=== PATIENT | male | born 1960 | race Hispanic/Latino ===

== ENCOUNTER 2017-08-30 18:15 | Emergency (ER) | payer MEDICAID ==
[2017-08-30 18:25] VITALS: BP 125/55; PULSE 85; RESP 18; TEMP 98.4; O2SAT 94
--- NOTE | 2017-08-30 18:48 | ED PDOC ---
HPI: Trauma/Fall - HPI Time Seen by Provider: 08/30/17 18:26 Chief Complaint (Nursing): Trauma Chief Complaint (Provider): fall, left side back pain History Per: Patient Additional Complaint(s): 57-year-old male presents to emergency Department with complaints of left upper back pain and left rib pain status post fall yesterday. Patient denies head injury or loss of consciousness. Patient denies syncope or dizziness prior to fall. He has been taking Advil which has provided only minimal pain relief. Pain is better with rest and worse with any movement. PMD: none Past Medical History Reviewed: Historical Data, Nursing Documentation, Vital Signs Vital Signs: Last Vital Signs Temp 98.4 F 08/30/17 18:22 Pulse 85 08/30/17 18:22 Resp 18 08/30/17 18:22 BP 125/55 L 08/30/17 18:22 Pulse Ox 94 L 08/30/17 18:22 - Medical History PMH: No Chronic Diseases - Surgical History Surgical History: No Surg Hx - Family History Family History: States: No Known Family Hx - Living Arrangements Living Arrangements: With Family - Social History Current smoker - smoking cessation education provided: No Alcohol: None Drugs: Denies - Home Medications Home Medications: Ambulatory Orders Medication Instructions Recorded Cyclobenzaprine [Cyclobenzaprine 10 mg PO TID PRN #15 tab 08/30/17 HCl] traMADol [Ultram] 50 mg PO Q6H PRN #15 tab 08/30/17 - Allergies Allergies/Adverse Reactions: Allergies Allergy/AdvReac Type Severity Reaction Status Date / Time No Known Allergies Allergy Verified 08/30/17 18:22 Review of Systems ROS Statement: Except As Marked, All Systems Reviewed And Found Negative Musculoskeletal: Positive for: Back Pain (left upper ) Neurological: Positive for: Other (no head injury or LOC) Physical Exam - Reviewed Nursing Documentation Reviewed: Yes Vital Signs Reviewed: Yes - Physical Exam Appears: Positive for: Well, Non-toxic, No Acute Distress Head Exam: Positive for: ATRAUMATIC, NORMAL INSPECTION, NORMOCEPHALIC Skin: Positive for: Normal Color. Negative for: Rash Neck: Positive for: Normal, Painless ROM Cardiovascular/Chest: Positive for: Regular Rate, Rhythm, Other (Mild tenderness left lateral chest wall and left posterior rib region, no palpable bony deformity) Respiratory: Positive for: CNT, Normal Breath Sounds Gastrointestinal/Abdominal: Positive for: Soft. Negative for: Tenderness, Distended, Guarding, Rebound Back: Positive for: Vertebral Tenderness (left paraspinal region along thoracic spine) Extremity: Positive for: Normal ROM Neurologic/Psych: Positive for: Alert, Oriented (x3). Negative for: Motor/ Sensory Deficits - ECG O2 Sat by Pulse Oximetry: 94 (RA) Pulse Ox Interpretation: Normal - Other Rad CXR with left rib series X-Ray: Interpreted by Me, Viewed By Me X-Ray Interpretation: no fx, no dis Thoracic spine x-ray X-Ray: Interpreted by Me, Viewed By Me X-Ray Interpretation: no fx, no dis Medical Decision Making Medical Decision Making: Time: 18:22 Impression: 57 y/o male with left rib pain and left upper back pain s/p fall Initial Plan: * Chest & Rib X-Ray * Pain medicine declined Patient aware of x-ray results. Prescriptions given for Ultram and Flexeril. Advised Tylenol and Advil for pain as well. Advised rest and ice to affected area. Patient was instructed to follow up with primary doctor in 2-3 days and is aware he can return to ED any time if acutely worse. Scribe Attestation: Documented by Kiko Meng acting as a scribe for WALLACE Herrera MDibe Attestation: All medical record entries made by the Scribe were at my direction and personally dictated by me. I have reviewed the chart and agree that the record accurately reflects my personal performance of the history, physical exam, medical decision making, and the department course for this patient. I have also personally directed, reviewed, and agree with the discharge instructions and disposition. Disposition - Clinical Impression Clinical Impression: Back contusion, Rib contusion - Patient ED Disposition Is Patient to be Admitted: No Counseled Patient/Family Regarding: Studies Performed, Diagnosis, Need For Followup, Rx Given - Disposition Referrals: [facility] [Outside] Disposition: Routine/Home Disposition Time: 19:46 Condition: STABLE Additional Instructions: Rest affected area and avoid heavy lifting. Take prescription meds as directed. Take Tylenol every 4-6 hours along with Advil every 6 hours as needed for pain. Follow-up with primary doctor in 2-3 days. Prescriptions: Cyclobenzaprine [Cyclobenzaprine HCl] 10 mg PO TID PRN #15 tab PRN Reason: Muscle Pain traMADol [Ultram] 50 mg PO Q6H PRN #15 tab PRN Reason: Pain, Moderate (4-7) Instructions: Bruised Rib (DC), Muscle Strain Forms: [facility] (Iraqi)
--- NOTE | 2017-08-31 06:26 | RAD ---
HISTORY: trauma COMPARISON: No prior. FINDINGS: BONES: Alignment maintained. No fracture. DISC SPACES: Mild multilevel degenerative change primarily disc space narrowing and small non marginal osteophyte formation. SOFT TISSUES: Normal. OTHER FINDINGS: None. IMPRESSION: No significant or acute findings to account for/ related to the clinical presentation. Additional benign and/or incidental findings described above. Concordant results with the preliminary interpretation rendered by the emergency department physician procedure.
--- NOTE | 2017-08-31 06:26 | RAD ---
PROCEDURE: Radiographs of the Chest and Left Ribs. HISTORY: trauma COMPARISON: None available. TECHNIQUE: Frontal radiograph of the chest and multiple oblique radiographs of the left ribs were obtained. FINDINGS: LEFT RIBS: No fracture or focal lesion visualized. LUNGS: Clear. PLEURA: No pneumothorax or pleural fluid. CARDIOVASCULAR: Normal sized heart. No pulmonary vascular congestion. OTHER FINDINGS: None. IMPRESSION: Unremarkable radiographs of the chest and left ribs. No left rib fracture. Concordant results with the preliminary interpretation rendered by the emergency department physician procedure.
== END 2017-08-30 20:15 | disposition home or self-care (01) ==
LOC: H.ER 18:15
DX: S20.219A Contusion of unspecified front wall of thorax, initial encounter (principal); S30.0XXA Contusion of lower back and pelvis, initial encounter; W19.XXXA Unspecified fall, initial encounter; Y92.89 Other specified places as the place of occurrence of the external cause